=== PATIENT | male | born 1965 | race African-American/Black ===

== ENCOUNTER 2023-03-31 21:25 | Emergency (ER) | payer MEDICARE ==
[~2023-03-31 21:25] MED LIST: Iopamidol 300 61% 100 ML VIAL FS ONE
[2023-03-31 22:30] LABS: Hematocrit 43.6 % (38.8-50.0); Hemoglobin 15.5 g/dL (13.5-17.5); MDiff Complete? YES; Mean Corpuscular HGB CONC 35.6 g/dL (32.0-36.0); Mean Corpuscular Volume 81.5 fl (81.2-95.1); Mean Platelet Volume 12.1 fl (7.4-10.4); Platelet Count 292 10x3/uL (150-450); RBC Distribution Width 11.9 % (11.5-14.5); Red Blood Cell (RBC) Count 5.35 10x6/uL (4.32-5.72); White Blood Cell (WBC) Count 7.5 10x3/uL (3.5-10.5)
[2023-03-31] MEDS ORDERED: diphenhydrAMINE 50 MG/ML VIAL ONE (22:37)
[2023-03-31] MEDS ORDERED: Metoclopramide HCl 10 MG/2 ML VIAL ONE (22:37)
[2023-03-31] MEDS ORDERED: Famotidine/PF 20 mg/2ml Vial ONE (22:38)
[2023-03-31] MEDS ORDERED: Ketorolac Tromethamine 30 MG/ML VIAL ONE (22:38)
[2023-03-31 22:43] LABS: ALT (SGPT) 23 U/L (8-55); AST (SGOT) 16 U/L (5-34); Albumin 4.9 g/dL (3.5-5.0); Alkaline Phosphatase 82 U/L (40-110); Anion Gap 19 mmol/L (10-20); BUN (Urea Nitrogen) 13 mg/dL (8.4-25.7); Calc. Creatinine Clearance 0 mL/min (70-130); Calcium 10.7 mg/dL (7.8-10.44); Carbon Dioxide 21 mmol/L (22-29); Chloride 101 mmol/L (98-107); Estimated GFR 52; Globulin 3.7 g/dL (2.4-3.5); Glucose 238 mg/dL (70-105); Lipase 7 U/L (8-78); Potassium 4.1 mmol/L (3.5-5.1); Protein, Total 8.6 g/dL (6.0-8.3); Sodium 137 mmol/L (136-145)
[2023-03-31 22:50] LABS: Troponin I Less than 0.010 ng/mL (< 0.028)
[2023-03-31] MEDS ORDERED: Carvedilol 3.125 MG TAB ONE (23:09)
[2023-03-31 23:13] LABS: Band 1 % (5-11); Lymphocytes 16 % (21-51); Monocytes 7 % (0-10); Neutrophil 76 % (42-75)
[2023-03-31 23:15] LABS: Platelet Adequacy Comment Appears Adequate; RBC Morph Comment Within Normal Limits
[2023-03-31] MEDS ORDERED: hydrALAZINE 25 MG TAB ONE (23:55)
[2023-04-01 00:48] LABS: Bilirubin Neg (Negative); Blood, Urine 10 (Negative); Clarity Clear (Clear); Glucose, Urine (Dipstick) >=1000 mg/dL (Negative); Ketone, Urine 5 mg/dL (Negative); Leukocyte Negative (Negative); Nitrite Negative (Negative); Protein, Urine (Dipstick) 30 mg/dl (Neg-Trace); Urobilinogen Normal mg/dL (Less than 2); pH, Urine 6.5 (5.0-9.0)
[2023-04-01 00:54] LABS: CAUTI Indications for Culture Pelvic or flank pain; RBC/HPF 0-3 HPF (0-3); Squamous Epithelial 0-3 HPF (0-3); WBC/HPF None Seen HPF (0-3)
[2023-04-01 00:55] LABS: Bacteria/HPF None Seen HPF (None Seen); Urine Culture Reflex No No
== END 2023-04-01 01:23 | disposition home or self-care (01) ==
LOC: CSHERS 21:25
DX: R10.84 Generalized abdominal pain (principal); R11.2 Nausea with vomiting, unspecified; I12.9 Hypertensive chronic kidney disease with stage 1 through stage 4 chronic kidney disease, or unspecified chronic kidney disease; N18.9 Chronic kidney disease, unspecified; E11.22 Type 2 diabetes mellitus with diabetic chronic kidney disease; R80.9 Proteinuria, unspecified; I25.2 Old myocardial infarction; E78.00 Pure hypercholesterolemia, unspecified; Z79.4 Long term (current) use of insulin; Z86.73 Personal history of transient ischemic attack (TIA), and cerebral infarction without residual deficits; Z79.899 Other long term (current) drug therapy; F17.220 Nicotine dependence, chewing tobacco, uncomplicated
CPT/HCPCS: 74177; 81001; 83690; 93005; 96361; 96374; 96375; J1200; J1885; J2765; Q9967; S0028

== ENCOUNTER 2023-04-04 21:50 | Inpatient (IN) | payer MEDICARE ==
[2023-04-05 00:30] LABS: Hematocrit 35.1 % (38.8-50.0); Hemoglobin 12.8 g/dL (13.5-17.5); Mean Corpuscular HGB CONC 36.5 g/dL (32.0-36.0); Mean Corpuscular Hemoglobin 30.3 pg (27.0-33.0); Mean Corpuscular Volume 83.2 fl (81.2-95.1); Mean Platelet Volume 13.1 fl (7.4-10.4); Platelet Count 231 10x3/uL (150-450); RBC Distribution Width 11.9 % (11.5-14.5); Red Blood Cell (RBC) Count 4.22 10x6/uL (4.32-5.72); White Blood Cell (WBC) Count 9.6 10x3/uL (3.5-10.5)
[2023-04-05 00:37] LABS: ALT (SGPT) 23 U/L (8-55); AST (SGOT) 23 U/L (5-34); Albumin 3.6 g/dL (3.5-5.0); Alkaline Phosphatase 77 U/L (40-110); Anion Gap 14 mmol/L (10-20); BUN (Urea Nitrogen) 22 mg/dL (8.4-25.7); Bilirubin, Total 0.7 mg/dL (0.2-1.2); Calc. Creatinine Clearance 0 mL/min (70-130); Carbon Dioxide 20 mmol/L (22-29); Chloride 98 mmol/L (98-107); Estimated GFR 40; Globulin 2.8 g/dL (2.4-3.5); Lipase 20 U/L (8-78); Potassium 4.1 mmol/L (3.5-5.1); Protein, Total 6.4 g/dL (6.0-8.3)
[2023-04-05 00:41] LABS: Sodium 128 mmol/L (136-145)
[2023-04-05 00:42] LABS: Glucose 482 mg/dL (70-105)
[2023-04-05 00:52] LABS: MDiff Complete? YES
[2023-04-05 01:17] LABS: Bilirubin Neg (Negative); Blood, Urine Negative (Negative); Clarity Clear (Clear); Glucose, Urine (Dipstick) >=1000 mg/dL (Negative); Ketone, Urine Negative (Negative); Leukocyte Negative (Negative); Nitrite Negative (Negative); Protein, Urine (Dipstick) Negative (Neg-Trace); Urobilinogen Normal mg/dL (Less than 2)
[2023-04-05 01:28] LABS: Bacteria/HPF None Seen HPF (None Seen); CAUTI Indications for Culture Dysuria,urgency,freq; RBC/HPF None Seen HPF (0-3); WBC/HPF 0-3 HPF (0-3)
[2023-04-05 01:29] LABS: Urine Culture Reflex No No
[2023-04-05] MEDS ORDERED: Glucagon 1 MG/ML KIT IM PRN (02:34)
[2023-04-05] MEDS ORDERED: Dextrose 50% Abboject 50 ML SYRINGE SLOW IVP PRN (02:34)
[2023-04-05] MEDS ORDERED: Dextrose 5% in Water 1,000 ML IV PRN (02:34)
[2023-04-05] MEDS ORDERED: Ondansetron PF 4 MG/2 ML Vial IVP PRN (02:34)
[2023-04-05] MEDS ORDERED: Bisacodyl 5 MG TAB PO PRN (02:34)
[2023-04-05] MEDS ORDERED: Acetaminophen 325 MG TAB PO PRN (02:34)
[2023-04-05] MEDS ORDERED: Calcium Carbonate 500 MG ChewTAB PO PRN (02:34)
[2023-04-05] MEDS ORDERED: Guaifenesin DM 100-10/5 ML UDCUP PO PRN (02:34)
[2023-04-05] MEDS ORDERED: Insulin Regular 300 UNITS/3 ML VIAL ONE (02:37)
[2023-04-05] MEDS ORDERED: Lactated Ringer's 1,000 ML IV SCH (03:30)
[2023-04-05] MEDS ORDERED: Pantoprazole 40 MG VIAL IVP SCH (03:30)
[2023-04-05 03:38] LABS: Lymphocytes 33 % (21-51); Monocytes 4 % (0-10); Neutrophil 61 % (42-75)
[2023-04-05 03:39] LABS: RBC Morph Comment Within Normal Limits
[2023-04-05 03:40] LABS: Platelet Adequacy Comment Appears Adequate; Small Platelets SLIGHT HPF (0-15)
[2023-04-05 03:42] VITALS: BMI 24.9
[2023-04-05 04:19] LABS: Anion Gap 14 mmol/L (10-20); BUN (Urea Nitrogen) 22 mg/dL (8.4-25.7); Calc. Creatinine Clearance 58 mL/min (70-130); Calcium 9.4 mg/dL (7.8-10.44); Carbon Dioxide 20 mmol/L (22-29); Chloride 101 mmol/L (98-107); Estimated GFR 44; Glucose 391 mg/dL (70-105); Potassium 4.2 mmol/L (3.5-5.1); Sodium 131 mmol/L (136-145)
[2023-04-05] MEDS ORDERED: FLU VACC QS2023-24(6MOS UP)/PF 60 MCG/0.5 ML SYRINGE IM ONE (04:30)
[2023-04-05 04:37] LABS: Hematocrit 36.8 % (38.8-50.0); Hemoglobin 13.1 g/dL (13.5-17.5); Mean Corpuscular HGB CONC 35.6 g/dL (32.0-36.0); Mean Corpuscular Hemoglobin 29.5 pg (27.0-33.0); Mean Corpuscular Volume 82.9 fl (81.2-95.1); Mean Platelet Volume 12.9 fl (7.4-10.4); Platelet Count 243 10x3/uL (150-450); RBC Distribution Width 11.9 % (11.5-14.5); Red Blood Cell (RBC) Count 4.44 10x6/uL (4.32-5.72); White Blood Cell (WBC) Count 9.5 10x3/uL (3.5-10.5)
[2023-04-05 04:52] LABS: MDiff Complete? YES
[2023-04-05 05:37] LABS: Eosinophils 1 % (0-10); Lymphocytes 26 % (21-51); Monocytes 10 % (0-10); Neutrophil 62 % (42-75)
[2023-04-05 05:38] LABS: Platelet Adequacy Comment Platelets Normal; RBC Morph Comment Within Normal Limits
[2023-04-05] MEDS: Senokot S 8.6-50 MG TAB PO SCH ×2 (09:04→20:44)
[2023-04-05] MEDS: Lantus 1000 UNITS/10 ML VIAL SC SCH ×2 (09:04→20:44)
[2023-04-05] MEDS: Polyethylene Glycol 3350 17 GM Packet PO SCH (09:04)
[2023-04-05] MEDS: Carvedilol 12.5 MG TAB PO SCH ×2 (09:04→17:36)
[2023-04-05] MEDS: HumaLOG 300 UNITS/3 ML VIAL SC PRN (11:37)
[2023-04-05 13:21] LABS: Hemoglobin A1c 11.1 % (4.0-6.0)
[2023-04-06 04:17] LABS: Anion Gap 13 mmol/L (10-20); BUN (Urea Nitrogen) 17 mg/dL (8.4-25.7); Calc. Creatinine Clearance 67 mL/min (70-130); Calcium 9.4 mg/dL (7.8-10.44); Carbon Dioxide 25 mmol/L (22-29); Chloride 102 mmol/L (98-107); Estimated GFR 52; Glucose 197 mg/dL (70-105); Potassium 4.7 mmol/L (3.5-5.1); Sodium 135 mmol/L (136-145)
[2023-04-06 04:51] LABS: Hematocrit 35.4 % (38.8-50.0); Hemoglobin 12.2 g/dL (13.5-17.5); Mean Corpuscular HGB CONC 34.5 g/dL (32.0-36.0); Mean Corpuscular Hemoglobin 28.9 pg (27.0-33.0); Mean Corpuscular Volume 83.9 fl (81.2-95.1); Mean Platelet Volume 12.8 fl (7.4-10.4); Platelet Count 244 10x3/uL (150-450); Red Blood Cell (RBC) Count 4.22 10x6/uL (4.32-5.72); White Blood Cell (WBC) Count 7.7 10x3/uL (3.5-10.5)
[2023-04-06 04:54] LABS: MDiff Complete? YES
[2023-04-06 05:01] LABS: Lymphocytes 36 % (21-51); Monocytes 9 % (0-10); Neutrophil 50 % (42-75); Reactive Lymphocytes 5 % (0-10)
[2023-04-06 05:04] LABS: RBC Morph Comment Within Normal Limits
[2023-04-06 05:07] LABS: Large Platelets SLIGHT (None Seen)
[2023-04-06] MEDS: Senokot S 8.6-50 MG TAB PO SCH ×2 (09:11→20:46)
[2023-04-06] MEDS: Polyethylene Glycol 3350 17 GM Packet PO SCH (09:12)
[2023-04-06] MEDS: Carvedilol 12.5 MG TAB PO SCH ×2 (09:15→17:12)
[2023-04-06] MEDS: Lantus 1000 UNITS/10 ML VIAL SC SCH (09:15)
[2023-04-06] MEDS ORDERED: Lactated Ringer's 1,000 ML IV SCH (13:00)
[2023-04-06] MEDS: HumaLOG 300 UNITS/3 ML VIAL SC PRN ×2 (17:58→20:48)
[2023-04-06] MEDS ORDERED: Bisacodyl 10 MG SUPP PR PRN (18:13)
[2023-04-06] MEDS ORDERED: Lantus 1000 UNITS/10 ML VIAL SC SCH (21:00)
[2023-04-07 05:58] LABS: Anion Gap 13 mmol/L (10-20); BUN (Urea Nitrogen) 17 mg/dL (8.4-25.7); Calc. Creatinine Clearance 72 mL/min (70-130); Calcium 9.9 mg/dL (7.8-10.44); Carbon Dioxide 26 mmol/L (22-29); Chloride 102 mmol/L (98-107); Estimated GFR 57; Glucose 62 mg/dL (70-105); Potassium 4.7 mmol/L (3.5-5.1); Sodium 136 mmol/L (136-145)
[2023-04-07 06:17] LABS: #Basophils 0.1 10x3/uL (0.0-0.2); #Eosinphils 0.1 10x3/uL (0.0-0.5); #Monocytes 0.7 10x3/uL (0.0-1.1); #Neutrophils 2.8 10x3/uL (1.5-8.4); %Basophils 1.7 % (0.0-2.0); %Lymphocytes 47.2 % (18.0-47.0); %Monocytes 9.9 % (0.0-10.0); %Neutrophils 39.1 % (40.0-75.0); Hematocrit 42.1 % (38.8-50.0); Hemoglobin 14.8 g/dL (13.5-17.5); Mean Corpuscular HGB CONC 35.2 g/dL (32.0-36.0); Mean Corpuscular Hemoglobin 29.5 pg (27.0-33.0); Platelet Count 236 10x3/uL (150-450); Red Blood Cell (RBC) Count 5.01 10x6/uL (4.32-5.72); White Blood Cell (WBC) Count 7.1 10x3/uL (3.5-10.5)
[2023-04-07 06:22] LABS: Free T4 (Free Thyroxine) 0.86 ng/dL (0.70-1.48)
[2023-04-07] MEDS: Senokot S 8.6-50 MG TAB PO SCH ×2 (09:02→20:41)
[2023-04-07] MEDS: Polyethylene Glycol 3350 17 GM Packet PO SCH (09:03)
[2023-04-07] MEDS ORDERED: Carvedilol 3.125 MG TAB PO SCH ×2 (10:00→17:00)
[2023-04-07] MEDS: HumaLOG 300 UNITS/3 ML VIAL SC PRN (21:06)
[2023-04-07] MEDS: Metoprolol Tartrate 25 MG TAB PO SCH ×2 (21:09→21:45)
[2023-04-08] MEDS: HumaLOG 300 UNITS/3 ML VIAL SC PRN ×3 (06:42→16:56)
[2023-04-08] MEDS: Polyethylene Glycol 3350 17 GM Packet PO SCH (09:00)
[2023-04-08] MEDS: Senokot S 8.6-50 MG TAB PO SCH ×2 (09:01→20:55)
[2023-04-08] MEDS: Metoprolol Tartrate 25 MG TAB PO SCH ×2 (10:14→21:00)
[2023-04-08] MEDS: Fludrocortisone Acetate 0.1 MG TAB PO SCH (10:29)
[2023-04-08] MEDS ORDERED: Lantus 1000 UNITS/10 ML VIAL SC SCH (21:00)
[2023-04-08] MEDS: Carvedilol 12.5 MG TAB PO SCH (21:41)
[2023-04-09] MEDS: HumaLOG 300 UNITS/3 ML VIAL SC PRN (06:08)
[2023-04-09 07:55] LABS: Anion Gap 16 mmol/L (10-20); BUN (Urea Nitrogen) 19 mg/dL (8.4-25.7); Calc. Creatinine Clearance 68 mL/min (70-130); Calcium 9.7 mg/dL (7.8-10.44); Carbon Dioxide 24 mmol/L (22-29); Chloride 98 mmol/L (98-107); Estimated GFR 54; Glucose 311 mg/dL (70-105); Potassium 5.2 mmol/L (3.5-5.1); Sodium 133 mmol/L (136-145)
[2023-04-09] MEDS ORDERED: Midodrine HCl 5 MG TAB PO SCH (09:00)
[2023-04-09] MEDS: Senokot S 8.6-50 MG TAB PO SCH (09:44)
[2023-04-09] MEDS: Polyethylene Glycol 3350 17 GM Packet PO SCH (09:45)
[2023-04-09 12:57] VITALS: BP 190/92; TEMP 97.5
[2023-04-09] MEDS: Metoprolol Tartrate 25 MG TAB PO SCH (13:34)
[2023-04-09] MEDS: Fludrocortisone Acetate 0.1 MG TAB PO SCH (13:34)
== END 2023-04-09 15:30 | disposition home or self-care (01) | DRG 638 ==
LOC: CSHERS 21:50 → CSHTELE 04-05 03:15 → OBSVTOIN 04-07 08:33
PROVIDERS: ADMIT Student in an Organized Health Care Education/Training Program; ATTEND Internal Medicine
DX: E11.649 Type 2 diabetes mellitus with hypoglycemia without coma (principal); E87.1 Hypo-osmolality and hyponatremia; F19.20 Other psychoactive substance dependence, uncomplicated; I13.0 Hypertensive heart and chronic kidney disease with heart failure and stage 1 through stage 4 chronic kidney disease, or unspecified chronic kidney disease; I50.30 Unspecified diastolic (congestive) heart failure; E11.65 Type 2 diabetes mellitus with hyperglycemia; N17.9 Acute kidney failure, unspecified; I95.1 Orthostatic hypotension; F45.8 Other somatoform disorders; K59.00 Constipation, unspecified; K80.20 Calculus of gallbladder without cholecystitis without obstruction; N20.0 Calculus of kidney; E11.22 Type 2 diabetes mellitus with diabetic chronic kidney disease; N18.30 Chronic kidney disease, stage 3 unspecified; F10.90 Alcohol use, unspecified, uncomplicated; Z71.6 Tobacco abuse counseling; I25.10 Atherosclerotic heart disease of native coronary artery without angina pectoris; Z79.82 Long term (current) use of aspirin; Z79.4 Long term (current) use of insulin; Z79.899 Other long term (current) drug therapy; Z95.1 Presence of aortocoronary bypass graft; E78.00 Pure hypercholesterolemia, unspecified; E11.40 Type 2 diabetes mellitus with diabetic neuropathy, unspecified
CPT/HCPCS: 36415; 36416; 74177; 80048; 80053; 81001; 82533; 82607; 83036; 83690; 83880; 84439; 84443; 84481; 85025; 93005; 93010; 93306; 93880; 96372; 96374; 96375; C9113; G0378; J1650; J1815; J7120; J7999; Q9967